=== PATIENT | male | born 1955 | race Caucasian/White ===

== ENCOUNTER 2016-05-26 09:33 | Inpatient (IN) | payer BC, OTHER ==
[~2016-05-26] VITALS: Ht 182.9 cm; Wt 146.5 kg
[~2016-05-26 09:33] MED LIST: APIX5TAB PO; DOXY100C2 PO; HYDR12.53 PO; LISI-334 PO; LOSA1TAB18 PO; TERB250T8 PO; TRIA15CR3 TP
[2016-05-26] MEDS ORDERED: FENTANYL PF 100 MCG/2 ML VIAL. IV PRN (10:15)
[2016-05-26] MEDS ORDERED: VANCOMYCIN PER PHARMACY MC ONE (10:15)
[2016-05-26 10:30] LABS: BASO # 0.1 x10^3/uL (0.0-0.2); BASO % 1 % (0-3); EOS % 2 % (0-3); HEMATOCRIT 39.9 % (39.0-53.0); HEMOGLOBIN 13.2 g/dL (13.0-17.5); LYMPH # 1.5 x10^3/uL (1.0-4.8); LYMPH % 22 % (24-48); MEAN CORPUSCULAR HEMOGLOBIN 33 pg (25-35); MEAN CORPUSCULAR HGB CONC 33 g/dL (31-37); MEAN CORPUSCULAR VOLUME 100 fL (79-100); MONO % 10 % (0-9); NEUT % 66 % (31-73); PLATELET COUNT 286 x10^3/uL (140-400); RED BLOOD COUNT 3.99 x10^6/uL (4.30-5.70); RED CELL DISTRIBUTION WIDTH 13.6 % (11.5-14.5); WHITE BLOOD COUNT 6.8 x10^3/uL (4.0-11.0)
[2016-05-26] MEDS ORDERED: VANCOMYCIN 2 GM in IV NORMAL SALINE 500ML BAG 500 ML IV ONE (10:30)
[2016-05-26 10:38] LABS: CALCIUM 9.2 mg/dL (8.5-10.1); CREATININE 1.1 mg/dL (0.7-1.3); GFR 68.5; POTASSIUM 3.6 mmol/L (3.5-5.1)
[2016-05-26 10:45] LABS: ALBUMIN 3.3 g/dL (3.4-5.0); ALBUMIN/GLOBULIN RATIO 0.7 (1.0-1.7); TOTAL BILIRUBIN 0.5 mg/dL (0.2-1.0); TOTAL PROTEIN 7.8 g/dL (6.4-8.2)
--- NOTE | 2016-05-26 10:51 | RAD ---
Exam performed: Left tibia fibula. Indication:Pain and swelling with cellulitis Date of Service:05/26/16 Comparison:None available Findings: AP and lateral radiographs of the tibia/fibula reveal the osseous structures to be intact and well aligned. The adjacent joint spaces, as visualized, are well-preserved. Evidence of fracture or dislocation is absent. There is diffuse soft tissue swelling throughout the left calf with phleboliths. Impression: Diffuse soft tissue swelling without underlying bony abnormality.
--- NOTE | 2016-05-26 11:08 | RAD ---
Exam performed: Left lower extremity venous Doppler. Clinical Indication: Left leg pain and swelling Date of Service:05/26/16 Comparison : None available Discussion: Multiple longitudinal and transverse high resolution real-time images of the venous system of left lower extremity were obtained with color and Doppler sampling and spectral analysis. The common femoral, superficial femoral, popliteal and proximal calf veins are all patent and demonstrate normal flow and compressibility. Normal respiratory phasicity and augmentation is present. Impression: Normal color duplex ultrasound of the venous system of left lower extremity.
[2016-05-26 12:30] VITALS: BP 131/65
[2016-05-26 12:35] VITALS: BP 146/72
[2016-05-26] MEDS ORDERED: ONDANSETRON PF 4 MG/2 ML VIAL. IV PRN (13:15)
[2016-05-26] MEDS ORDERED: ACETAMINOPHEN 325 MG TABLET. PO PRN (13:15)
[2016-05-26] MEDS ORDERED: MORPHINE SULFATE 4 MG/ML DISP.SYRIN. IV PRN (13:15)
--- NOTE | 2016-05-26 14:35 | ED.ADGEN ---
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 Patient states she began experiencing pain, swelling and redness in his left lower extremity about 4 days ago. Has noted increased streaking of red and denuding of the skin on the lateral around his left distal tib-fib region over the past day or so. No fevers or chills, nausea or vomiting , no weakness emesis or tingling. Denies any injuries, no history of diabetes. He states he has been compliant with his Xarelto. No recent travel or surgery, no other complaints. Review of Systems Review of Systems Constitutional: Denies fever or chills. [] Eyes: Denies change in visual acuity. [] HENT: Denies nasal congestion or sore throat. [] Respiratory: Denies cough or shortness of breath. [] Cardiovascular: Denies chest pain or edema. [] GI: Denies abdominal pain, nausea, vomiting, bloody stools or diarrhea. [] : Denies dysuria. [] Musculoskeletal: Denies back pain or joint pain. [] Integument: Denies rash. [] Neurologic: Denies headache, focal weakness or sensory changes. [] Endocrine: Denies polyuria or polydipsia. [] Lymphatic: Denies swollen glands. [] Psychiatric: Denies depression or anxiety. [] Current Medications Current Medications Current Medications Medications (Trade) Dose Ordered Sig/Vita Start Time Stop Time Status Last Admin Dose Admin Fentanyl Citrate 25 mcg 25 mcg PRN Q15MIN PRN 05/26/16 10:15 05/27/16 10:14 Vancomycin HCl (Vanco Per Pharmacy) 1 each 1X ONCE 05/26/16 10:15 05/26/16 10:16 DC Vancomycin HCl/ Sodium Chloride (Iv Sodium Chloride 0.9% 500ml Bag) 500 ml @ 250 mls/hr 1X ONCE 05/26/16 10:30 05/26/16 12:29 DC 05/26/16 10:33 250 MLS/HR Allergies Allergies Allergies Coded Allergies Type Severity Reaction Last Updated Verified I S O L A T I O N *CONTACT* Allergy Unknown 10/15/15 Yes No Known Medication Allergies Allergy Unknown 10/15/15 Yes Physical Exam Physical Exam Constitutional: Well developed, well nourished, no acute distress, non-toxic appearance. [] HENT: Normocephalic, atraumatic, bilateral external ears normal, oropharynx moist, no oral exudates, nose normal. [] Eyes: PERRLA, EOMI, conjunctiva normal, no discharge. [] Neck: Normal range of motion, no tenderness, supple, no stridor. [] Cardiovascular:Heart rate regular rhythm, no murmur , S1, S2, rubs or gallops. [ ] Lungs & Thorax: Bilateral breath sounds clear to auscultation, no wheezing, rhonchi, rales. No chest wall tenderness or crepitus. [] Abdomen: Bowel sounds normal, soft, no tenderness, no rebound, rigidity, no guarding, no masses, no pulsatile masses. [] Skin: Warm, dry, no erythema, no rash. [] Back: No tenderness, no CVA tenderness. [] Extremities: Patient with erythema and blanching of the skin extending from the patient's dorsal aspect of his foot, to just below the knee and the anterior aspect of the left lower extremity, patient with denuded skin, with weeping and a small amount of whitish drainage noted over the lateral aspect of the left lower tib-fib region just above the ankle. No discrete fluid collections identified. Patient with tenderness to palpation along the entire area. Neurologic: Alert and oriented X 3, normal motor function, normal sensory function, no focal deficits noted. [] Psychologic: Affect normal, judgement normal, mood normal. [] Current Patient Data Vital Signs Vital Signs Date Time Temp Pulse Resp B/P Pulse Ox O2 Delivery O2 Flow Rate FiO2 05/26/16 10:00 90 20 161/82 99 05/26/16 09:46 98.2 Room Air 98.2 Lab Values Laboratory Tests Test 05/26/16 09:50 White Blood Count 6.8x10^3/uL (4.0-11.0) Red Blood Count 3.99x10^6/uL (4.30-5.70) L Hemoglobin 13.2g/dL (13.0-17.5) Hematocrit 39.9% (39.0-53.0) Mean Corpuscular Volume 100fL (79-100) Mean Corpuscular Hemoglobin 33pg (25-35) Mean Corpuscular Hemoglobin Concent 33g/dL (31-37) Red Cell Distribution Width 13.6% (11.5-14.5) Platelet Count 286x10^3/uL (140-400) Neutrophils (%) (Auto) 66% (31-73) Lymphocytes (%) (Auto) 22% (24-48) L Monocytes (%) (Auto) 10% (0-9) H Eosinophils (%) (Auto) 2% (0-3) Basophils (%) (Auto) 1% (0-3) Neutrophils # (Auto) 4.5x10^3uL (1.8-7.7) Lymphocytes # (Auto) 1.5x10^3/uL (1.0-4.8) Monocytes # (Auto) 0.7x10^3/uL (0.0-1.1) Eosinophils # (Auto) 0.1x10^3/uL (0.0-0.7) Basophils # (Auto) 0.1x10^3/uL (0.0-0.2) Sodium Level 144mmol/L (136-145) Potassium Level 3.6mmol/L (3.5-5.1) Chloride Level 105mmol/L (98-107) Carbon Dioxide Level 28mmol/L (21-32) Anion Gap 11 (6-14) Blood Urea Nitrogen 18mg/dL (8-26) Creatinine 1.1mg/dL (0.7-1.3) Estimated GFR (Cockcroft-Gault) 68.5 BUN/Creatinine Ratio 16 (6-20) Glucose Level 103mg/dL (70-99) H Calcium Level 9.2mg/dL (8.5-10.1) Total Bilirubin 0.5mg/dL (0.2-1.0) Aspartate Amino Transferase (AST) 22U/L (15-37) Alanine Aminotransferase (ALT) 21U/L (16-63) Alkaline Phosphatase 93U/L (46-116) Total Protein 7.8g/dL (6.4-8.2) Albumin 3.3g/dL (3.4-5.0) L Albumin/Globulin Ratio 0.7 (1.0-1.7) L Laboratory Tests 05/26/16 09:50 Laboratory Tests 05/26/16 09:50 EKG EKG Not indicated.] Radiology/Procedures Radiology/Procedures [] [address] [address] IMAGING REPORT Signed PATIENT: ABDOULAYE OLSEN ACCOUNT: [id number] : 1955 LOCATION: ER AGE: 60 SEX: M EXAM STATUS: REG ER ORD. PHYSICIAN: MO COLVIN DO REASON: swelling/pain/hx DVT. WAITED 20 MINS ON LAB DRAW AND LOSS PREVENTION OPERATIONS MANAGER: VENOUS LOWER EXTREMITY LEFT Exam performed: Left lower extremity venous Doppler. Clinical Indication: Left leg pain and swelling Date of Service:05/26/16 Comparison : None available Discussion: Multiple longitudinal and transverse high resolution real-time images of the venous system of left lower extremity were obtained with color and Doppler sampling and spectral analysis. The common femoral, superficial femoral, popliteal and proximal calf veins are all patent and demonstrate normal flow and compressibility. Normal respiratory phasicity and augmentation is present. Impression: Normal color duplex ultrasound of the venous system of left lower extremity. DICTATED and SIGNED BY: JACKY ROSE MD DATE: 05/26/16 1105 CC: ROBBIN DAVID MD; MO COLVIN DO ~ Impressions: [address] [address] IMAGING REPORT Signed PATIENT: ABDOULAYE OLSEN ACCOUNT: [id number] : 1955 LOCATION: ER AGE: 60 SEX: M EXAM STATUS: REG ER ORD. PHYSICIAN: MO COLVIN DO REASON: pain/swelling/cellulitis PROCEDURE: TIBIA FIBULA LEFT Exam performed: Left tibia fibula. Indication:Pain and swelling with cellulitis Date of Service:05/26/16 Comparison:None available Findings: AP and lateral radiographs of the tibia/fibula reveal the osseous structures to be intact and well aligned. The adjacent joint spaces, as visualized, are well-preserved. Evidence of fracture or dislocation is absent. There is diffuse soft tissue swelling throughout the left calf with phleboliths. Impression: Diffuse soft tissue swelling without underlying bony abnormality. DICTATED and SIGNED BY: JACKY ROSE MD DATE: 05/26/16 1047 CC: ROBBIN DAVID MD; MO COLVIN DO ~ Course & Med Decision Making Course & Med Decision Making Pertinent Labs and Imaging studies reviewed. (See chart for details) Patient with evidence of worsening cellulitis of the left lower extremity, no discrete abscesses identified, patient with denuding of the skin and weeping noted along this area, he has a history of "staph infection". Patient's tetanus is up-to-date. Ultrasound of the lower extremity ordered patient has history of recurrent DVT, x-ray also ordered although he denies any history of injury. No concerning findings identified on these studies, are consistent with soft tissue swelling, but no DVT or fracture. Findings as above discussed with the patient's primary care provider, Dr. David, who did send to the ED for additional evaluation, due to the progressive nature of his cellulitis. Will admit to the hospital for IV antibiotics, and management, patient is no evidence of leukocytosis or other concerning findings at this time. Culture is pending. Patient agreeable this plan, wound was dressed in the ED, with good pain control established, patient initiated on vancomycin in the ED without issue. Dragon Disclaimer Dragon Disclaimer This electronic medical record was generated, in whole or in part, using a voice recognition dictation system. Departure Impression: Primary Impression: Cellulitis Disposition: 09 ADMITTED INPATIENT Admitting Physician: Robbin David Condition: IMPROVED Problem Qualifiers Primary Impression: Cellulitis Site of cellulitis: extremity Site of cellulitis of extremity: lower extremity Laterality: left Qualified Code: L03.116 - Cellulitis of left lower limb MO COLVIN DO May 26, 2016 14:35
[2016-05-26 15:00] VITALS: BP 143/61
[2016-05-26] MEDS: silver sulfADIAZINE 1% CREAM 25GM TUBE. TP SCH ×2 (15:09→20:37)
[2016-05-26] MEDS ORDERED: RIVA20TA2 PO (15:11)
--- NOTE | 2016-05-26 16:39 | ACF ---
Admission Forms Criteria CELLULITIS Clinical Indications for Admission to Inpatient Care (Place 'X' for any and all applicable criteria): Admission is indicated for ANY ONE of the following(1)(2)(3)(4)(5): [X]I. Limb-threatening infection [ ]II. High-risk comorbid condition as indicated by ANY ONE of the following: [ ]a) Uncontrolled diabetes (eg, HbA1c greater than 10% (0.1)) [ ]b) Cirrhosis [ ]c) Neutropenia [ ]d) Asplenia [ ]e) Immunosuppression [ ]f) Symptomatic heart failure [ ]III. Failure of outpatient therapy as indicated by ALL of the following: [ ]a) Progression or no improvement after adequate trial (minimum of 48 hours, with longer period for stable lower extremity infection) [ ]b) Adequate antibiotic regimen as indicated by use of ANY ONE of the following: [ ]i) First-generation cephalosporin (e.g., cephalexin) [ ]ii) Antistaphylococcal penicillin (e.g., dicloxacillin) [ ]iii) Penicillin-allergic patient regimen (clindamycin, extended-spectrum fluoroquinolone, or doxycycline) [ ]iv) Resistant organism (eg, methicillin-resistant Staphylococcus aureus) regimen (6) [ ]c) Outpatient intravenous therapy regimen is not appropriate due to ANY ONE of the following. (7)(8)(9)(10): [ ]i) It was tried and was not successful (eg, progression of infection). [ ]ii) It is not available or cannot be arranged in a clinically appropriate time frame (e.g., the next day). [ ]iii) Clinical presentation (eg, acuity of infection, rapidity of progression, confirmed or suspected bacteremia) is judged to require ALL of the following: [ ]1) Immediate initiation of intravenous therapy ( eg, cannot wait for next day) [ ]2) Intensity of patient monitoring and observation (eg, vital sign measurement, checks for infection progression) that cannot be provided at other than inpatient level of care [ ]IV. Mental status changes [ ]V. Bacteremia [ ]. Hemodynamic instability [ ]VII. Suspected necrotizing soft tissue infection (e.g., gas in tissue)(11)( 12) [ ]VIII. Orbital infection (13)(14) [ ]IX. Associated surgical procedure (e.g., abscess drainage, debridement) not amenable to outpatient, emergency department, or observation care [ ]X. Cutaneous gangrene [ ]XI. High fever (temperature greater than 39.5 degrees C (103.1 degrees F) (oral)) not responsive to outpatient, emergency department, or observation care therapy [ ]XIII. Inpatient admission required rather than observation care (Also use Cellulitis: Observation Care as appropriate) because of ANY ONE of the following : [ ]a) Periorbital or perineal infection that is severe or worsening [ ]b) Severe pain requiring acute inpatient management [ ]c) IV fluid to replace significant ongoing (e.g., for over 24 hours) losses (greater than 3L/m2 per day) [ ]d) Compartment syndrome monitoring (17) [ ]e) Strict or protective (eg, laminar flow) isolation [ ]f) Urgent debridement or skin grafting [ ]g) Bone or joint debridement [ ]h) Immediate inpatient surgery [ ]i) Other condition, treatment or monitoring requiring inpatient admission Extended stay beyond goal length of stay may be needed for (1)(18): [ ]a) Necrotizing soft tissue infection or fasciitis [ ]b) Gram-negative infection [ ]c) Methicillin-resistant Staphylococcal aureus (MRSA) infection [ ]d) Peripheral venous insufficiency with cellulitis [ ]e) Extensive edema [ ]f) Sepsis or continued Hemodynamic instability [ ]g) Continued high fever or mental status change [ ]h) Bacteremia [ ]i) Active serious comorbid conditions ( eg, heart failure, renal insufficiency) The original [employer] content created by [employer] has been revised. The portions of the content which have been revised are identified through the use of italic text or in bold, and [facility] has neither reviewed nor approved the modified material. All other unmodified content is copyright [email or web address] Please see references footnoted in the original [email or web address] edition 2016 Admission Criteria Met?: Yes ARON ABREU May 26, 2016 16:39
[2016-05-26] MEDS: VANCOMYCIN 2 GM in IV NORMAL SALINE 500ML BAG 500 ML IV SCH (18:14)
[2016-05-26 19:00] VITALS: BP 115/58
[2016-05-26 22:39] VITALS: BP 128/69
[2016-05-27 02:55] VITALS: BP 118/66
[2016-05-27] MEDS: VANCOMYCIN 2 GM in IV NORMAL SALINE 500ML BAG 500 ML IV SCH ×2 (03:27→10:30)
[2016-05-27 07:00] VITALS: BP 156/79
[2016-05-27] MEDS: silver sulfADIAZINE 1% CREAM 25GM TUBE. TP SCH ×2 (09:00→21:00)
[2016-05-27 10:26] LABS: BASO % 1 % (0-3); EOS % 3 % (0-3); HEMOGLOBIN 12.7 g/dL (13.0-17.5); LYMPH # 1.3 x10^3/uL (1.0-4.8); LYMPH % 22 % (24-48); MEAN CORPUSCULAR HEMOGLOBIN 33 pg (25-35); MEAN CORPUSCULAR HGB CONC 33 g/dL (31-37); MEAN CORPUSCULAR VOLUME 100 fL (79-100); MONO % 9 % (0-9); NEUT % 65 % (31-73); PLATELET COUNT 254 x10^3/uL (140-400); RED CELL DISTRIBUTION WIDTH 13.9 % (11.5-14.5); WHITE BLOOD COUNT 5.7 x10^3/uL (4.0-11.0)
[2016-05-27 10:33] LABS: CALCIUM 9.1 mg/dL (8.5-10.1); CREATININE 0.9 mg/dL (0.7-1.3); GFR 86.4; POTASSIUM 4.1 mmol/L (3.5-5.1)
[2016-05-27 10:46] VITALS: BP 105/72
[2016-05-27] MEDS: VANCOMYCIN PER PHARMACY MC PRN (10:53)
[2016-05-27] MEDS ORDERED: VANCOMYCIN 1.5 GM in IV NORMAL SALINE 500ML BAG 500 ML IV SCH (11:00)
--- NOTE | 2016-05-27 11:05 | PDOC ---
Provider Note Provider Note [id number] ROBBIN DAVID MD May 27, 2016 11:05
[2016-05-27] MEDS: APIXABAN 5 MG TABLET. PO SCH ×2 (11:44→17:57)
[2016-05-27] MEDS: HYDROCHLOROTHIAZIDE 12.5 MG CAPSULE. PO SCH (11:44)
[2016-05-27] MEDS: TRIAMCINOLONE ACETONIDE 0.1% TOPICAL CREAM 15GM TUBE. TP SCH ×2 (11:47→21:00)
--- NOTE | 2016-05-27 12:36 | HP ---
ADMIT DATE: 05/26/2016 CHIEF COMPLAINT: Painful draining left leg. HISTORY OF PRESENT ILLNESS: A 60-year-old white male with chronic inflammatory dermatitis of unknown etiology of the left leg, came in with increasing draining pain, redness and itching over the last several days. He had been using topical econazole and had taken oral Lamisil as well in the last few weeks without much benefit. He is not using any steroid cream ____ recalls no specific injury to the leg. He had a diffusely draining, inflamed, weeping leg, was admitted for IV antibiotic and after culture ____ was drawn. PAST MEDICAL HISTORY: He has had a pulmonary embolus, severe in nature about 02/2016 and this being his second pulmonary embolus, he is on anticoagulation for life. He currently takes Xarelto after he has been taken off of Eliquis by insurance. He also takes antihypertensive meds. He has no known drug allergies. No history of diabetes or other serious medical problems. Tetanus status is up to date. SOCIAL HISTORY: Single, employed, nonsmoker, nondrinker. FAMILY HISTORY: Unremarkable. REVIEW OF SYSTEMS: He has lost 60-70 pounds by voluntary calorie reduction and is feeling generally better. OBJECTIVE: ENT: All within normal limits. NECK: No nodes, masses, bruits or thyroid enlargement. LUNGS: Clear. CARDIOVASCULAR: Regular rate. No irregular beat, tachycardia or murmur. ABDOMEN: Obese, soft, benign and nontender. EXTREMITIES: Right leg is totally normal. Pedal pulses bilaterally are excellent as are posterior tibials. All toenails are thickly fungal, but there is no interdigital redness. He has thick callus seen at the sole of the left foot, the right foot is normal. There is a diffuse open draining dermatitis of the left lower leg from the mid leg down to above the ankle, primarily anteriorly, above that area, the skin is diffusely red and inflamed, but dry. The left and right knees are normal. NEUROLOGIC: Physiologic and nonfocal. ASSESSMENT: 1. Inflammatory dermatitis with secondary bacterial infection of the left lower leg. The etiology of the chronically inflamed skin is unclear, but does not appear to be fungal at this time. 2. 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 3. Hypertension, stable. 4. Morbid obesity, improving with weight loss. PLAN: Continue vancomycin pending cultures as he did have MRSA in the left leg in 11/2015. Topical steroid cream and wound care for now. ROBBIN DAVID MD DR: HARRIS/shameka JOB#: [id number] / [id number]
[2016-05-27] MEDS ORDERED: CEFAZOLIN SODIUM 1 GM in IV NORMAL SALINE 50ML 50 ML IV SCH (14:00)
[2016-05-27 15:00] VITALS: BP 139/71
[2016-05-27 19:59] VITALS: BP 105/70
[2016-05-27 23:49] VITALS: BP 128/69
[2016-05-28 03:59] VITALS: BP 128/64
[2016-05-28] MEDS: APIXABAN 5 MG TABLET. PO SCH ×2 (06:25→17:37)
[2016-05-28 07:00] VITALS: BP 137/80
--- NOTE | 2016-05-28 08:01 | PDOC ---
Provider Note Provider Note vss, no temp, bp good- no wound culture available despite order- L lower leg no longer draing, will cont vanco and add more topical cream re recovery ROBBIN DAVID MD May 28, 2016 08:01
[2016-05-28] MEDS: silver sulfADIAZINE 1% CREAM 25GM TUBE. TP SCH ×2 (09:00→21:00)
[2016-05-28] MEDS: HYDROCHLOROTHIAZIDE 12.5 MG CAPSULE. PO SCH (09:06)
[2016-05-28] MEDS: SMZ/TMP 800/160MG TABLET. PO SCH ×2 (09:06→17:37)
[2016-05-28] MEDS: TRIAMCINOLONE ACETONIDE 0.1% TOPICAL CREAM 15GM TUBE. TP SCH ×2 (09:06→21:00)
[2016-05-28] MEDS ORDERED: VANCOMYCIN 1.75 GM in IV NORMAL SALINE 500ML BAG 500 ML IV SCH (11:00)
[2016-05-28 11:13] VITALS: BP 130/65
[2016-05-28] MEDS: VANCOMYCIN PER PHARMACY MC PRN (11:17)
[2016-05-28] MEDS ORDERED: VANCOMYCIN RANDOM LEVEL. MC ONE (11:30)
[2016-05-28] MEDS: VANCOMYCIN 1.75 GM in IV NORMAL SALINE 500ML BAG 500 ML IV SCH (14:30)
[2016-05-28 15:00] VITALS: BP 143/74
[2016-05-28 19:00] VITALS: BP 141/72
[2016-05-28 23:00] VITALS: BP 129/74
[2016-05-29] MEDS: VANCOMYCIN 1.75 GM in IV NORMAL SALINE 500ML BAG 500 ML IV SCH (02:02)
[2016-05-29 03:00] VITALS: BP 133/73
[2016-05-29] MEDS: APIXABAN 5 MG TABLET. PO SCH (06:37)
--- NOTE | 2016-05-29 07:43 | DISCH ---
DISCHARGE INSTRUCTIONS Condition on Discharge Condition on Discharge: Stable Activity After Discharge Activity Instructions for Disc: No restrictions Diet after Discharge Diet after Discharge: No Added Salt Follow-Up Follow up with: dr mattson 4 days ROBBIN DAVID MD May 29, 2016 07:43
--- NOTE | 2016-05-29 07:48 | PDOC ---
Provider Note Provider Note [id number] ROBBIN DAVID MD May 29, 2016 07:48
[2016-05-29 07:52] VITALS: BP 159/78
[2016-05-29] MEDS: HYDROCHLOROTHIAZIDE 12.5 MG CAPSULE. PO SCH (08:27)
[2016-05-29] MEDS: SMZ/TMP 800/160MG TABLET. PO SCH (08:27)
[2016-05-29] MEDS: silver sulfADIAZINE 1% CREAM 25GM TUBE. TP SCH (08:33)
[2016-05-29] MEDS: TRIAMCINOLONE ACETONIDE 0.1% TOPICAL CREAM 15GM TUBE. TP SCH (08:33)
--- NOTE | 2016-05-30 08:37 | DS ---
DATE OF DISCHARGE: 05/29/2016 HOSPITAL SUMMARY: This is a 60-year-old white male with recurrent cellulitis to the left lower extremity with inflammatory dermatitis, this is a predisposing problem. Vancomycin levels were therapeutic. Chemistry profile and CBC were unremarkable. Blood cultures had no growth. Wound culture was never done. X-ray of the tibia and fibula were normal as was the venous Doppler study. He was treated with IV vancomycin as a probable MRSA as it had been in the previous culture 6 months ago. He has remained afebrile clinically. His left leg is markedly improved and no longer draining, has been using triamcinolone cream as well to reduce inflammation. He is comfortable. He will be followed as an outpatient at this point. FINAL DIAGNOSES: 1. Left lower extremity cellulitis. 2. Chronic inflammatory dermatitis of the left lower extremity. OPERATIONS, PROCEDURES, COMPLICATIONS, AND CONSULTATIONS: None. DISPOSITION: Continue Bactrim DS for at least another week twice a day with triamcinolone cream and emollient cream twice a day to the inflamed skin to the left lower leg only. He will take losartan-HCTZ only for hypertension and may need to reduce that as he has lost a lot of weight. Office followup in 4 days. PROGNOSIS: Good. ROBBIN DAVID MD DR: HARRIS/shameka JOB#: [id number] / [id number]
== END 2016-05-29 10:22 | disposition home or self-care (01) | DRG 602 ==
LOC: ER 09:33 → 5 SOUTH 10:52
PROVIDERS: ADMIT Family Medicine; ATTEND Family Medicine
DX: L03.116 Cellulitis of left lower limb (principal); I26.99 Other pulmonary embolism without acute cor pulmonale; Z68.41 Body mass index [BMI] 40.0-44.9, adult; I10 Essential (primary) hypertension; E66.01 Morbid (severe) obesity due to excess calories; L30.9 Dermatitis, unspecified; Z79.01 Long term (current) use of anticoagulants; Z86.711 Personal history of pulmonary embolism; Z86.718 Personal history of other venous thrombosis and embolism
CPT/HCPCS: 36415; 73590; 80048; 80053; 80202; 85027; 87040; 93971; 96374; J3370; J7040; 99285-25